=== PATIENT | male | born 1990 | race African-American/Black ===

== ENCOUNTER → 2024-09-13 | Outpatient (CLI) | LOC: M SOG 09:57 | PROVIDERS: ATTEND Physician Assistant | DX: M25.532 Pain in left wrist (principal) ==

== ENCOUNTER → 2024-09-24 | Outpatient (CLI) | payer OTHER | LOC: M RAD 07:22 | PROVIDERS: ATTEND Physician Assistant | DX: S63.392A Traumatic rupture of other ligament of left wrist, initial encounter (principal); W18.30XA Fall on same level, unspecified, initial encounter; Y92.009 Unspecified place in unspecified non-institutional (private) residence as the place of occurrence of the external cause ==

== ENCOUNTER → 2024-12-02 | Outpatient (CLI) | payer OTHER ==
[~2024-12-02] MED LIST: IBUP1TAB7 PO; OXYC1TAB23; PERCOCET PO
== END ==
LOC: M SOG 16:12
PROVIDERS: ATTEND Orthopaedic Surgery Hand Surgery
DX: Z47.89 Encounter for other orthopedic aftercare (principal); M25.332 Other instability, left wrist; S63.392D Traumatic rupture of other ligament of left wrist, subsequent encounter; W18.30XD Fall on same level, unspecified, subsequent encounter

== ENCOUNTER → 2025-01-28 | Outpatient (CLI) | payer OTHER | LOC: M SOG 06:49 | PROVIDERS: ATTEND Orthopaedic Surgery Hand Surgery | DX: S63.392A Traumatic rupture of other ligament of left wrist, initial encounter (principal); W18.30XA Fall on same level, unspecified, initial encounter; Y92.009 Unspecified place in unspecified non-institutional (private) residence as the place of occurrence of the external cause ==

== ENCOUNTER → 2025-03-22 | Outpatient (CLI) | payer OTHER | LOC: M SOG 07:29 | PROVIDERS: ATTEND Physician Assistant | DX: S63.392D Traumatic rupture of other ligament of left wrist, subsequent encounter (principal) ==